=== PATIENT | female | born 1990 | race Two or more races ===

== ENCOUNTER 2016-10-25 12:11 | Emergency (ER) | payer MEDICAID ==
[~2016-10-25] VITALS: Ht 167.6 cm; Wt 72.6 kg
[2016-10-25 14:08] VITALS: BP 145/77
[2016-10-25] MEDS ORDERED: ACETAMINOPHEN ES 500 MG TABLET PO ONE (14:30)
[2016-10-25 14:32] LABS: BASOPHILS % (AUTO) 0.4 % (0.0-2.0); DIFF TOTAL % 100 %; EOSINOPHILS # (AUTO) 0.1 /CMM (0.0-0.7); EOSINOPHILS % (AUTO) 1.1 % (0.0-6.0); HEMATOCRIT 30 % (33-45); HEMOGLOBIN 9.5 g/dL (11.5-14.8); LYMPHOCYTES # (AUTO) 1.6 /CMM (0.8-4.8); LYMPHOCYTES % (AUTO) 19.8 % (20.0-44.0); MEAN CORPUSCULAR HEMOGLOBIN 22 PG (26.0-33.0); MEAN CORPUSCULAR HGB CONC 31 g/dl (31.0-36.0); MEAN CORPUSCULAR VOLUME 70 fL (82-100); MONOCYTES # (AUTO) 0.5 /CMM (0.1-1.30); NEUTROPHILS % (AUTO) 72.7 % (43.0-81.0); PLATELET COUNT (AUTO) 341 /CMM (150-450); RED BLOOD CELL COUNT(AUTO) 4.31 MIL/uL (4.0-5.2); WHITE BLOOD COUNT (AUTO) 8.2 K/uL (4.3-11.0)
[2016-10-25] MEDS ORDERED: ACETAMINOPHEN ES 500 MG TABLET ONE (14:33)
[2016-10-25 15:10] LABS: ANION GAP 14 (5-14); CALCIUM, SERUM 8.8 mg/dL (8.5-10.1); CARBON DIOXIDE 26 mmol/L (21-32); CHLORIDE 102 mmol/L (98-107); CREATININE 0.6 mg/dL (0.6-1.3); GFR 121 mL/min (>60); GLUCOSE 91 mg/dL (74-106); SODIUM SERUM 139 mmol/L (136-145); UREA NITROGEN, BLOOD 13 mg/dL (7-18)
[2016-10-25] MEDS ORDERED: POTASSIUM CHLORIDE 20 MEQ TAB.PRT.SR PO ONE (15:30)
[2016-10-25 15:56] LABS: PHENCYCLIDINE SCREEN,URINE NEGATIVE (NEGATIVE)
[2016-10-25 15:57] LABS: CANNABINOID, URINE POSITIVE (NEGATIVE)
[2016-10-25 16:01] LABS: LYMPHOCYTES % (MANUAL) 23 % (16-48)
[2016-10-25 16:02] LABS: ANISOCYTOSIS 2+; HYPOCHROMASIA 2+; MICROCYTOSIS 2+; PLATELET ESTIMATE ADEQUATE
[2016-10-25] MEDS ORDERED: POTASSIUM CHLORIDE 20 MEQ POWDER PACKET ONE (17:46)
== END 2016-10-25 18:00 ==
LOC: ER 12:14
DX: R45.851 Suicidal ideations (principal); F20.9 Schizophrenia, unspecified; I10 Essential (primary) hypertension; F17.200 Nicotine dependence, unspecified, uncomplicated
CPT/HCPCS: 36415; 80048; 80305; 84703; 85025; 99285; A4606; G0481; Z7610; G6040-TC

== ENCOUNTER 2019-08-21 15:24 | Emergency (ER) | payer MEDICAID ==
[~2019-08-21] VITALS: Ht 157.5 cm; Wt 56.7 kg
--- NOTE | 2019-08-21 15:28 | NUR ---
PT [id number] [facility] C/O NAUSEA, VOMITING AND DIARRHEA X 3 DAYS, PT IS AAOX4, NOT IN RESPIRATORY DISTRESS, HOOKED TO MONITOR, KEPT RESTED AND COMFORTABLE, WILL CONTINUE TO MONITOR.
--- NOTE | 2019-08-21 15:55 | NUR ---
MARIAELENA WINTERS AT BEDSIDE FOR EVAL.
[2019-08-21] MEDS ORDERED: ONDANSETRON 4 MG TAB.RAPDIS ONE (15:59)
[2019-08-21] MEDS ORDERED: ONDANSETRON 4 MG TAB.RAPDIS SL ONE (16:00)
--- NOTE | 2019-08-21 16:10 | NUR ---
ER PHLEB AT BEDSIDE FOR BLOOD DRAW.
[2019-08-21 16:20] LABS: BASOPHILS # (AUTO) 0.1 /CMM (0.0-0.2); BASOPHILS % (AUTO) 0.7 % (0.0-2.0); EOSINOPHILS % (AUTO) 0.4 % (0.0-6.0); HEMATOCRIT 31 % (33-45); LYMPHOCYTES # (AUTO) 2.1 /CMM (0.8-4.8); LYMPHOCYTES % (AUTO) 17.1 % (20.0-44.0); MEAN CORPUSCULAR HGB CONC 32 g/dl (31.0-36.0); MEAN CORPUSCULAR VOLUME 84 fL (82-100); MONOCYTES # (AUTO) 0.7 /CMM (0.1-1.30); MONOCYTES % (AUTO) 5.7 % (2.0-12.0); NEUTROPHILS # (AUTO) 9.5 /CMM (1.8-8.9); NEUTROPHILS % (AUTO) 76.1 % (43.0-81.0); PLATELET COUNT (AUTO) 423 /CMM (150-450); RED BLOOD CELL COUNT(AUTO) 3.74 MIL/uL (4.0-5.2); WHITE BLOOD COUNT (AUTO) 12.5 K/uL (4.3-11.0)
[2019-08-21 16:38] LABS: CALCIUM, SERUM 9.2 mg/dL (8.5-10.1); CREATININE 1.2 mg/dL (0.6-1.3); POTASSIUM 3.4 mmol/L (3.5-5.1)
[2019-08-21 16:48] LABS: ALBUMIN 3.8 g/dL (3.4-5.0); BILIRUBIN,DIRECT 0.1 mg/dL (0.0-0.2); BILIRUBIN,TOTAL 0.5 mg/dL (0.2-1.0)
[2019-08-21] MEDS ORDERED: BACITRACIN ZINC OINT (15 GM) 15 GM TUBE TP SCH (17:00)
--- NOTE | 2019-08-21 17:02 | NUR ---
PT IS FOR DISCHARGED, PT STATED THAT IS SHE IS SUICIDAL.
--- NOTE | 2019-08-21 17:15 | NUR ---
PT BECAME AGGRESSIVE AND BELIGERENT TOWARDS ER STAFF. THREATENING TO KILL HER SELF BY SMOTHERING HER SELF WITH THE PILLOW.
[2019-08-21] MEDS ORDERED: LORAZEPAM INJ 2 MG/ML VIAL ONE (17:20)
[2019-08-21 17:22] LABS: ACETAMINOPHEN < 5 ug/ml (10-30); ALCOHOL, BLOOD < 3 mg/dL (0-0)
[2019-08-21 17:23] LABS: SALICYLATE 0.2 mg/dL (2.8-20.0)
[2019-08-21 17:27] LABS: APPEARANCE,URINE Cloudy (CLEAR); BILIRUBIN,URINE SMALL (NEGATIVE); BLOOD, URINE Large Ery/uL (NEGATIVE); COLOR,URINE Yellow (YELLOW); KETONES,URINE Trace (NEGATIVE); LEUKOCYTE ESTERASE ,URINE Small (NEGATIVE); NITRITE, URINE Negative (NEGATIVE); PROTEIN,URINE 100 mg/dl (NEGATIVE); UGLUCOSE Negative (NEGATIVE); UROBILINOGEN,URINE 0.2 EU/dL (0.2)
[2019-08-21] MEDS ORDERED: LORAZEPAM INJ 2 MG/ML VIAL IM ONE (17:30)
--- NOTE | 2019-08-21 17:30 | NUR ---
PT IS IN 4 POINT RESTRAINT PER ER MD ORDER.
[2019-08-21 17:41] LABS: BACTERIA,URINE Moderate /HPF (None Seen); SQUAMOUS EPITHELIAL CELL,UR Few /HPF (None Seen); URINE AMORPHOUS URATE Few /HPF (None Seen); WBC,URINE TOO NUMEROUS TO COUN /HPF (0-3)
--- NOTE | 2019-08-21 19:11 | NUR ---
REPORT GIVEN TO ROSITA DIAL FOR [facility].
--- NOTE | 2019-08-22 05:54 | NUR ---
pt resting comfortably in gurney. pr denies any medical complaints. pt calm and cooperative. patient denying and si or hi. will cont to monitor pt.
--- NOTE | 2019-08-22 06:15 | NUR ---
pt ok to discharge per dr cazares. pt provided with meal. pt refusing to sign homeless waiver. pt discarhged in stable condition.
[2019-08-22 07:18] VITALS: BP 124/89
== END 2019-08-22 07:19 | disposition home or self-care (01) ==
LOC: ER 15:27
DX: K52.9 Noninfective gastroenteritis and colitis, unspecified (principal); R45.851 Suicidal ideations; F19.10 Other psychoactive substance abuse, uncomplicated; I10 Essential (primary) hypertension; F10.10 Alcohol abuse, uncomplicated; F17.200 Nicotine dependence, unspecified, uncomplicated; F20.9 Schizophrenia, unspecified; Y90.0 Blood alcohol level of less than 20 mg/100 ml; Z59.0 Homelessness; Z90.89 Acquired absence of other organs; Z98.890 Other specified postprocedural states
CPT/HCPCS: 36415; 80048; 80076; 80305; 80307; 80329; 81001; 83690; 84703; 85025; 87086; 96372; 99283; G0480; J2060; Q0162; 81000-TC; 87186-TC

== ENCOUNTER 2020-08-12 14:50 | Emergency (ER) | payer MEDICAID, OTHER ==
[~2020-08-12] VITALS: Ht 152.4 cm; Wt 54.4 kg
--- NOTE | 2020-08-12 15:00 | NUR ---
[address]IB [address] c/o abdominal pain x 3 days. Patient a/ox4, breathing even and unlabored, patient is verbally abusive to staff, refuses to give a urine sample at this time.
[2020-08-12 15:28] LABS: BASOPHILS % (AUTO) 0.2 % (0.0-2.0); EOSINOPHILS % (AUTO) 0.6 % (0.0-6.0); HEMATOCRIT 31 % (33-45); HEMOGLOBIN 9.8 g/dL (11.5-14.8); LYMPHOCYTES # (AUTO) 1.6 /CMM (0.8-4.8); LYMPHOCYTES % (AUTO) 22.6 % (20.0-44.0); MEAN CORPUSCULAR HGB CONC 31 g/dl (31.0-36.0); MEAN CORPUSCULAR VOLUME 79 fL (82-100); MONOCYTES # (AUTO) 0.6 /CMM (0.1-1.30); MONOCYTES % (AUTO) 8.4 % (2.0-12.0); NEUTROPHILS # (AUTO) 4.8 /CMM (1.8-8.9); NEUTROPHILS % (AUTO) 68.2 % (43.0-81.0); PLATELET COUNT (AUTO) 316 /CMM (150-450); RED BLOOD CELL COUNT(AUTO) 3.98 MIL/uL (4.0-5.2); WHITE BLOOD COUNT (AUTO) 7.1 K/uL (4.3-11.0)
[2020-08-12] MEDS ORDERED: KETOROLAC TROMETHAMINE INJ 30 MG/ML VIAL IV ONE (15:30)
[2020-08-12] MEDS ORDERED: IV NS 0.9% 1,000 ML BAG IV ONE (15:30)
[2020-08-12] MEDS ORDERED: ONDANSETRON HCL/PF 4 MG/2 ML VIAL IVP ONE (15:30)
[2020-08-12] MEDS ORDERED: MAG HYDROX/AL HYDROX/SIMETH 30 ML UDC PO ONE (15:30)
[2020-08-12] MEDS ORDERED: LORAZEPAM 0.5 MG TABLET PO ONE (15:30)
[2020-08-12] MEDS ORDERED: LIDOCAINE VISCOUS 2% UD 15 ML UDC MM ONE (15:30)
[2020-08-12 15:43] LABS: ALANINE AMINOTRANSFERASE 49 U/L (12-78); ALBUMIN 3.5 g/dL (3.4-5.0); ALKALINE PHOSPHATASE 64 U/L (46-116); ASPARTATE AMINOTRANSFERASE 33 U/L (15-37); BILIRUBIN,DIRECT 0.2 mg/dL (0.0-0.2); BILIRUBIN,TOTAL 0.4 mg/dL (0.2-1.0); CALCIUM, SERUM 8.6 mg/dL (8.5-10.1); CARBON DIOXIDE 23 mmol/L (21-32); CHLORIDE 101 mmol/L (98-107); CREATININE 1.6 mg/dL (0.6-1.3); GLUCOSE 64 mg/dL (74-106); LIPASE 99 U/L (73-393); SODIUM SERUM 136 mmol/L (136-145); UREA NITROGEN, BLOOD 13 mg/dL (7-18)
[2020-08-12 15:44] LABS: POTASSIUM 2.7 mmol/L (3.5-5.1)
[2020-08-12] MEDS ORDERED: Magnesium 1GM/D5W 100ML PREMIX 100 ML IV ONE (15:45)
[2020-08-12] MEDS ORDERED: LIDOCAINE VISCOUS 2% UD 15 ML UDC ONE (15:45)
[2020-08-12] MEDS ORDERED: POTASSIUM CHLORIDE 20 MEQ TAB.PRT.SR PO ONE ×2 (15:45→16:00)
[2020-08-12] MEDS ORDERED: MAG HYDROX/AL HYDROX/SIMETH 30 ML UDC ONE (15:45)
[2020-08-12] MEDS ORDERED: LORAZEPAM 0.5 MG TABLET ONE (15:47)
[2020-08-12] MEDS ORDERED: ONDANSETRON HCL/PF 4 MG/2 ML VIAL ONE (15:47)
--- NOTE | 2020-08-12 15:55 | NUR ---
PATIENT REFUSES TO GIVE URINE SAMPLE.
[2020-08-12] MEDS ORDERED: Magnesium 1GM/D5W 100ML PREMIX 100 ML IV SCH (16:00)
[2020-08-12] MEDS ORDERED: POTASSIUM CL. PREMIX PERIPHER. 100 ML ONE (16:27)
[2020-08-12] MEDS ORDERED: KETOROLAC TROMETHAMINE 15 MG/ML VIAL ONE (16:27)
[2020-08-12 16:42] LABS: APPEARANCE,URINE Clear (CLEAR); BILIRUBIN,URINE Negative (NEGATIVE); BLOOD, URINE Large Ery/uL (NEGATIVE); COLOR,URINE Yellow (YELLOW); LEUKOCYTE ESTERASE ,URINE Negative (NEGATIVE); NITRITE, URINE Negative (NEGATIVE); PROTEIN,URINE Negative (NEGATIVE); UGLUCOSE Negative (NEGATIVE); UROBILINOGEN,URINE 0.2 EU/dL (0.2)
[2020-08-12 16:54] LABS: BACTERIA,URINE Rare /HPF (None Seen); RBC,URINE 21-50 /HPF (0-2); SQUAMOUS EPITHELIAL CELL,UR Few /HPF (None Seen); WBC,URINE NONE SEEN /HPF (0-3)
[2020-08-12] MEDS: POTASSIUM CL. PREMIX PERIPHER. 50 ML IV SCH ×2 (16:54→17:48)
--- NOTE | 2020-08-12 17:05 | NUR ---
PATIENT A/OX4, AMBULATORY WITH STEADY GAIT. NO DISTRESS NOTED.
--- NOTE | 2020-08-12 18:27 | NUR ---
PATIENT REFUSING, VITAL SIGNS. IN STABLE CONDITION.
--- NOTE | 2020-08-12 18:56 | NUR ---
PATIENT A/OX4, BREATHING EVEN AND UNLABORED, NO SOB NOTED. IV removed. Catheter intact and site benign. Pressure and 4x4 applied to site. No bleeding noted. Provided food and transportation but patient refused. Patient given written and verbal discharge instructions. Patient verbalizes understanding of instructions. Patient is ambulatory with steady gait. Refuses offer of halfway placement. Patient given list of available shelters in surrounding area.
[2020-08-12 18:57] VITALS: BP 132/76
== END 2020-08-12 18:58 | disposition home or self-care (01) ==
LOC: ER 14:59
DX: E86.0 Dehydration (principal); F19.10 Other psychoactive substance abuse, uncomplicated; E87.6 Hypokalemia; R00.0 Tachycardia, unspecified; I10 Essential (primary) hypertension; Z98.890 Other specified postprocedural states
CPT/HCPCS: 36415; 80048; 80076; 80307; 81001; 83690; 84484; 84703; 85025; 96365; 96366; 96367; 96375; 99284; J1885; J2405; J3475; J3480; J7030; 81000-TC

== ENCOUNTER 2020-09-25 09:58 | Emergency (ER) | payer OTHER ==
[~2020-09-25] VITALS: Ht 157.5 cm; Wt 56.8 kg
--- NOTE | 2020-09-25 10:08 | NUR ---
BIB SELF C/O SUICIDAL W/ PLAN TO JUMP OFF A BUILDING. "I WANT TO SEE MY GUTS INTHE FLOOR". VS CHECKED. STABLE. CALLED SECURITY FOR WANDING. BELONGINGS CHECKED. PLACED ON SUICIDE PRECAUTIONS.
--- NOTE | 2020-09-25 10:17 | NUR ---
urine collected sent to lab
[2020-09-25 10:55] LABS: BILIRUBIN,URINE Negative (NEGATIVE); BLOOD, URINE Negative Ery/uL (NEGATIVE); COLOR,URINE YELLOW (YELLOW); LEUKOCYTE ESTERASE ,URINE Negative (NEGATIVE); NITRITE, URINE Negative (NEGATIVE); PROTEIN,URINE 30 mg/dl (NEGATIVE); UGLUCOSE Negative (NEGATIVE)
[2020-09-25 11:15] LABS: BACTERIA,URINE Moderate /HPF (None Seen); RBC,URINE 0-2 /HPF (0-2); SQUAMOUS EPITHELIAL CELL,UR Many /HPF (None Seen); WBC,URINE 0-2 /HPF (0-3)
[2020-09-25 11:25] LABS: BASOPHILS % (AUTO) 0.4 % (0.0-2.0); EOSINOPHILS % (AUTO) 1.3 % (0.0-6.0); HEMATOCRIT 29 % (33-45); HEMOGLOBIN 9.5 g/dL (11.5-14.8); LYMPHOCYTES # (AUTO) 1.8 /CMM (0.8-4.8); LYMPHOCYTES % (AUTO) 20.7 % (20.0-44.0); MEAN CORPUSCULAR HGB CONC 32 g/dl (31.0-36.0); MEAN CORPUSCULAR VOLUME 79 fL (82-100); MONOCYTES # (AUTO) 0.6 /CMM (0.1-1.30); MONOCYTES % (AUTO) 6.8 % (2.0-12.0); NEUTROPHILS % (AUTO) 70.8 % (43.0-81.0); PLATELET COUNT (AUTO) 227 /CMM (150-450); RED BLOOD CELL COUNT(AUTO) 3.75 MIL/uL (4.0-5.2); WHITE BLOOD COUNT (AUTO) 8.5 K/uL (4.3-11.0)
[2020-09-25 11:49] LABS: ACETAMINOPHEN 0 ug/ml (10-30); ALANINE AMINOTRANSFERASE 40 U/L (12-78); ALBUMIN 3.5 g/dL (3.4-5.0); ALCOHOL, BLOOD < 3 mg/dL (0-0); ALKALINE PHOSPHATASE 73 U/L (46-116); ASPARTATE AMINOTRANSFERASE 30 U/L (15-37); BILIRUBIN,DIRECT 0.1 mg/dL (0.0-0.2); BILIRUBIN,TOTAL 0.3 mg/dL (0.2-1.0); CALCIUM, SERUM 8.8 mg/dL (8.5-10.1); CARBON DIOXIDE 33 mmol/L (21-32); CHLORIDE 99 mmol/L (98-107); GLUCOSE 95 mg/dL (74-106); SODIUM SERUM 139 mmol/L (136-145); TOTAL PROTEIN, SERUM 7.6 g/dL (6.4-8.2); UREA NITROGEN, BLOOD 16 mg/dL (7-18)
[2020-09-25 11:52] LABS: POTASSIUM 2.3 mmol/L (3.5-5.1)
[2020-09-25] MEDS ORDERED: POTASSIUM CHLORIDE 20 MEQ TAB.PRT.SR PO ONE ×2 (12:00→12:04)
--- NOTE | 2020-09-25 12:54 | NUR ---
FAXED FACESHEET AND CLINICALS TO [facility]
--- NOTE | 2020-09-25 15:54 | NUR ---
SS consult requested for Homeless pt. with SI w/plan. The pt. is a 30-year old Female with a history of psychiatric problems presenting to the emergency department for suicidal ideation, per MD note. The pt. is alert 7 oriented x 4. Pt. stated she is experiencing homelessness and stated she stays at [facility]. Per pt. she is currently having thoughts of SI w/plan to jump off a building. Pt.s mood is very happy. Pt.s has fair insight & poor judgement. Pt.s she is experiencing visual and auditory hallucinations. Pt. denies HI. Pt. state she received $220 in [employer] [place] and no other benefits. Pt. denies ETOH/ drug use. SW explored pt.s support system pt. stated she has family but not in communication. SW offered pt. inpatient psychiatric Tx. Pt. was agreeable. Plan: SW referred pt. to [facility] [phone] FX: [phone] for inpatient psychiatric treatment and awaiting available bed. Pt. signed homeless waiver and SW placed it in pt.s chart. DORA provided the following homeless resources and pt. was receptive: Substance Abuse resources provided included: [facility] Substance Abuse Self-Helpline ([facility]) ; [facility] [address] [facility] [place] [address] ; [facility] [address] [facility] [address] ; [facility] Rehabilitation Program [address] [facility] [address] ; [facility] [place] [address] [facility] [address] ; [facility] 37[address] [facility] [address] ; [facility] [address] [facility] [address] ; [facility] Substance Abuse Helpline([facility])-[facility] ; [facility] ; [facility]; [facility] [place]; [facility] [address]; [facility] [place]; [facility] [place]; [facility] [place]; [facility] [place]; Alcoholics Anonymous -SFV; Qs-Hbgf-Bophfyl ; Marijuana Anonymous -[facility]; Narcotics Anonymous www.na.org. Year-round shelters: [facility] [place] [address] [place] [address] ; [facility] [place] [address] [place] [address]; [facility] J[address]nsi[address] [facility]. [facility] [address] Hygiene: [facility]: [address] [place] ; [place] [address] [facility] ; [facility] [address]51 [facility] [place] . Food Resources: [place] [facility] at [facility]- [address] [facility]; Meet Each Need with Dignity ([facility]) [address] [facility]; [facility] Food Pantry 4360 [facility]; [facility] 57[address] [facility]. Mental Health resources provided: [facility] [address] [place] [address] ; [facility] [address] [facility] [address], [place] [address] ; [facility] [address] [place] [address] ; [facility] [place], [place] [address] Healthcare Clinics: [facility] [address] [facility], [address] [place]. [place] ; [facility] [address] [facility] [address] [place] [address]; [facility] [address] [facility] [place] [address] [phone] CounselingOutpatient: [facility]:[address] [facility], [address] [place], [place] [address] (Specializes in in-depth psychotherapy for emotional distress: anxiety, depression, interpersonal conflicts, life transitions, childhood abuse) [facility]: [address] [place] [address] (Assist with solving problem marital difficulties, separation & divorce, aging parents, & grief, chronic & terminal illness) [facility]: [address] [place] [address] (Deal with loss & grief, anxiety, marital difficulties) Homebound/Mental Health Services :[address], [address] [place], [place] [id number] (Provide in-home mental services to people who are incapable of leaving their homes) Organization for Needs of the Elderly: Senior Service/Resource Center [address] [place] [address]; Partial Hospitalization Program and Outpatient at [facility] :[address] [place] [address]; [facility] :[address] [place], [place] [id number]
--- NOTE | 2020-09-25 16:23 | NUR ---
PER SANDY SOLOMON INTAKE TRANSFER INFO: [facility] GOING TO [facility], ACCEPTED BY DR SARAH MILTON, RN FOR REPORT [phone]
--- NOTE | 2020-09-25 17:52 | NUR ---
CALLED [facility], RES#[phone], ETA TO FOLLOW
--- NOTE | 2020-09-25 18:15 | NUR ---
report given to terri kearns at [facility]
--- NOTE | 2020-09-25 20:32 | NUR ---
PER [employer] NO ASSIGNED BLS UNIT AT THIS TIME
--- NOTE | 2020-09-25 21:00 | NUR ---
PT VERBALLY ABUSIVE TO STAFF. DELUSIONAL. AWARE. ORDER RECEIVED
[2020-09-25 21:10] VITALS: BP 136/84
[2020-09-25] MEDS ORDERED: OLANZAPINE 10 MG VIAL IM ONE ×2 (21:23→21:30)
--- NOTE | 2020-09-25 22:43 | NUR ---
REPORT GIVEN TO EMS. PT STABLE FOR TRANSFER
== END 2020-09-25 22:44 ==
LOC: ER 10:06
DX: R45.851 Suicidal ideations (principal); F20.9 Schizophrenia, unspecified; F15.10 Other stimulant abuse, uncomplicated; Z20.828 Contact with and (suspected) exposure to other viral communicable diseases; E87.6 Hypokalemia; F17.200 Nicotine dependence, unspecified, uncomplicated; I10 Essential (primary) hypertension
CPT/HCPCS: 36415; 80048; 80076; 80299; 80307; 80320; 81001; 84703; 85025; 87086; 87426; 96372; 99285; C9803; J3490; G0480

== ENCOUNTER 2021-12-21 10:55 | Emergency (ER) | payer OTHER ==
[~2021-12-21] VITALS: Ht 157.5 cm; Wt 74.4 kg
--- NOTE | 2021-12-21 11:00 | NUR ---
BIB RA 86 FROM HOME,C/O ABDOMINAL PAIN X 3 DAYS. PATIENT PLACED COMFORTABLY IN BED. VITALS CHECKED.
--- NOTE | 2021-12-21 11:30 | NUR ---
ASSISTANT INFANT TODDLER TEACHER AT BEDSIDE
[2021-12-21 11:32] LABS: BASOPHILS % (AUTO) 0.3 % (0.0-2.0); EOSINOPHILS % (AUTO) 0.1 % (0.0-6.0); HEMATOCRIT 31 % (33-45); HEMOGLOBIN 9.9 g/dL (11.5-14.8); LYMPHOCYTES # (AUTO) 1.2 K/uL (0.8-4.8); LYMPHOCYTES % (AUTO) 13.4 % (20.0-44.0); MEAN CORPUSCULAR HGB CONC 32 g/dl (31.0-36.0); MEAN CORPUSCULAR VOLUME 78 fL (82-100); MONOCYTES # (AUTO) 0.4 K/uL (0.1-1.30); MONOCYTES % (AUTO) 4.7 % (2.0-12.0); NEUTROPHILS # (AUTO) 7.1 K/uL (1.8-8.9); NEUTROPHILS % (AUTO) 81.5 % (43.0-81.0); PLATELET COUNT (AUTO) 344 K/uL (150-450); RED BLOOD CELL COUNT(AUTO) 4.01 MIL/uL (4.0-5.2); WHITE BLOOD COUNT (AUTO) 8.7 K/uL (4.3-11.0)
[2021-12-21 12:18] LABS: ALANINE AMINOTRANSFERASE 50 U/L (12-78); ALBUMIN 3.7 g/dL (3.4-5.0); ALCOHOL, BLOOD < 3 mg/dL (0-0); ALKALINE PHOSPHATASE 78 U/L (46-116); ASPARTATE AMINOTRANSFERASE 30 U/L (15-37); BILIRUBIN,DIRECT 0.1 mg/dL (0.0-0.2); BILIRUBIN,TOTAL 0.4 mg/dL (0.2-1.0); CALCIUM, SERUM 8.4 mg/dL (8.5-10.1); CARBON DIOXIDE 25 mmol/L (21-32); CHLORIDE 106 mmol/L (98-107); CREATININE 1.1 mg/dL (0.6-1.3); GLUCOSE 125 mg/dL (74-106); POTASSIUM 3.3 mmol/L (3.5-5.1); SODIUM SERUM 142 mmol/L (136-145); UREA NITROGEN, BLOOD 22 mg/dL (7-18)
[2021-12-21 12:21] LABS: ACETAMINOPHEN 0 ug/ml (10-30)
--- NOTE | 2021-12-21 13:03 | NUR ---
STILL UNABLE TO PROVIDE URINE SAMPLE AT THIS TIME, MD DIALLO
--- NOTE | 2021-12-21 14:44 | NUR ---
URINE SPECIMEN SENT TO LAB
[2021-12-21 15:28] LABS: BILIRUBIN,URINE NEGATIVE (NEGATIVE); COLOR,URINE YELLOW (YELLOW); LEUKOCYTE ESTERASE ,URINE NEGATIVE (NEGATIVE); NITRITE, URINE NEGATIVE (NEGATIVE); PROTEIN,URINE 30 mg/dl (NEGATIVE); UGLUCOSE 100 MG/DL mg/dL (NEGATIVE); UROBILINOGEN,URINE 0.2 EU/dL (0.2)
[2021-12-21 15:44] LABS: BACTERIA,URINE Few /HPF (None Seen); SQUAMOUS EPITHELIAL CELL,UR Moderate /HPF (None Seen)
--- NOTE | 2021-12-21 16:43 | NUR ---
MD AWARE OF PATIENT BLOOD PRESSURE, SEE CHART
[2021-12-21] MEDS ORDERED: LORAZEPAM INJ 2 MG/ML VIAL IM ONE (17:00)
[2021-12-21] MEDS ORDERED: LORAZEPAM INJ 2 MG/ML VIAL ONE (17:23)
--- NOTE | 2021-12-21 18:57 | NUR ---
COVID ANTIGEN SWAB SENT TO LAB
--- NOTE | 2021-12-21 20:30 | NUR ---
PATIENT IS ASLEEP BUT AROUSABLE.
--- NOTE | 2021-12-21 20:51 | NUR ---
FACESHEET AND CLINICALS FAXED TO [facility].
--- NOTE | 2021-12-22 00:28 | NUR ---
URINE COLLECTED AND SENT TO LAB
--- NOTE | 2021-12-22 01:47 | NUR ---
ACCEPTED AT [facility] ACCEPTING DOCTOR: DR. MARTÍNEZ NUMBER FOR REPORT: [phone] PER ART.
--- NOTE | 2021-12-22 01:56 | NUR ---
[facility] ETA 1 HOUR
[2021-12-22] MEDS ORDERED: CLONIDINE HCL 0.1 MG TABLET ONE ×2 (02:25→03:30)
[2021-12-22] MEDS ORDERED: CLONIDINE HCL 0.1 MG TABLET PO ONE ×2 (02:30→03:30)
--- NOTE | 2021-12-22 03:09 | NUR ---
REPORT GIVEN TO
--- NOTE | 2021-12-22 03:20 | NUR ---
[facility] 295 at [facility] to transport patient to [facility] in stable condition.
[2021-12-22 06:02] VITALS: BP 132/85
--- NOTE | 2021-12-22 08:15 | NUR ---
THE PATIENT IS RECEIVED IN ER BED #12. THE PATIENT IS ALERT AND ORIENTED X4. DENIES PAIN. IN ROOM AIR AND DENIES SOB. RESPIRATION REGULAR AND UNLABORED. WILL CONTINUE TO MONITOR THE PATIENT.
--- NOTE | 2021-12-22 10:14 | NUR ---
THE PATIENT IS TRANSFERED TO [facility] IN STABLE CONDITION VIA ARRANGED TRANSPO.
--- NOTE | 2021-12-22 10:15 | NUR ---
UNABLE TO DEPART THE PATIENT FROM [facility] ER
== END 2021-12-22 10:14 ==
LOC: ER 11:00
DX: R45.851 Suicidal ideations (principal); F20.9 Schizophrenia, unspecified; I10 Essential (primary) hypertension; F15.10 Other stimulant abuse, uncomplicated; Z20.822 Contact with and (suspected) exposure to COVID-19
CPT/HCPCS: 36415; 80048; 80076; 80143; 80307; 80320; 81001; 85025; 87426; 96372; 99285; C9803; J2060; G0480

== ENCOUNTER 2022-01-03 10:36 | Emergency (ER) | payer OTHER ==
[~2022-01-03] VITALS: Ht 160 cm; Wt 70.3 kg
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
[2022-01-03] MEDS ORDERED: LORAZEPAM 1 MG TABLET ONE (10:54)
[2022-01-03] MEDS ORDERED: OLANZAPINE 5 MG TABLET ONE (10:54)
[2022-01-03] MEDS ORDERED: LORAZEPAM 1 MG TABLET PO ONE (11:00)
[2022-01-03] MEDS ORDERED: OLANZAPINE 5 MG TABLET PO ONE (11:00)
--- NOTE | 2022-01-03 11:05 | NUR ---
LAB AT BEDSIDE
--- NOTE | 2022-01-03 11:07 | NUR ---
PT TAKEN TO CT
[2022-01-03 11:17] LABS: BASOPHILS # (AUTO) 0.1 K/uL (0.0-0.2); BASOPHILS % (AUTO) 0.9 % (0.0-2.0); EOSINOPHILS % (AUTO) 0.3 % (0.0-6.0); HEMATOCRIT 31 % (33-45); HEMOGLOBIN 9.9 g/dL (11.5-14.8); LYMPHOCYTES # (AUTO) 1.4 K/uL (0.8-4.8); LYMPHOCYTES % (AUTO) 9.6 % (20.0-44.0); MEAN CORPUSCULAR HGB CONC 32 g/dl (31.0-36.0); MEAN CORPUSCULAR VOLUME 78 fL (82-100); MONOCYTES # (AUTO) 0.5 K/uL (0.1-1.30); MONOCYTES % (AUTO) 3.6 % (2.0-12.0); NEUTROPHILS # (AUTO) 12.8 K/uL (1.8-8.9); NEUTROPHILS % (AUTO) 85.6 % (43.0-81.0); PLATELET COUNT (AUTO) 276 K/uL (150-450); RED BLOOD CELL COUNT(AUTO) 3.99 MIL/uL (4.0-5.2); WHITE BLOOD COUNT (AUTO) 14.9 K/uL (4.3-11.0)
[2022-01-03 11:24] LABS: CARBON DIOXIDE 30 mmol/L (21-32); CHLORIDE 98 mmol/L (98-107); CREATININE 1.5 mg/dL (0.6-1.3); GLUCOSE 111 mg/dL (74-106); SODIUM SERUM 134 mmol/L (136-145); UREA NITROGEN, BLOOD 24 mg/dL (7-18)
[2022-01-03 11:25] LABS: POTASSIUM 2.4 mmol/L (3.5-5.1)
[2022-01-03 11:30] LABS: ALANINE AMINOTRANSFERASE 44 U/L (12-78); ALBUMIN 3.9 g/dL (3.4-5.0); ALCOHOL, BLOOD < 3 mg/dL (0-0); ALKALINE PHOSPHATASE 78 U/L (46-116); ASPARTATE AMINOTRANSFERASE 28 U/L (15-37); BILIRUBIN,DIRECT 0.1 mg/dL (0.0-0.2); BILIRUBIN,TOTAL 0.4 mg/dL (0.2-1.0); TOTAL PROTEIN, SERUM 8.1 g/dL (6.4-8.2)
[2022-01-03 11:32] LABS: BILIRUBIN,URINE NEGATIVE (NEGATIVE); COLOR,URINE YELLOW (YELLOW); LEUKOCYTE ESTERASE ,URINE NEGATIVE (NEGATIVE); NITRITE, URINE NEGATIVE (NEGATIVE); PROTEIN,URINE NEGATIVE (NEGATIVE); UGLUCOSE 100 MG/DL mg/dL (NEGATIVE); UROBILINOGEN,URINE 0.2 EU/dL (0.2)
[2022-01-03 11:47] LABS: BACTERIA,URINE Few /HPF (None Seen); RBC,URINE 0-2 /HPF (0-2); SQUAMOUS EPITHELIAL CELL,UR Moderate /HPF (None Seen); WBC,URINE 0-2 /HPF (0-3)
[2022-01-03] MEDS ORDERED: POTASSIUM CHLORIDE 20 MEQ TAB.PRT.SR PO ONE ×4 (11:51→21:30)
[2022-01-03 12:22] LABS: ACETAMINOPHEN 0 ug/ml (10-30)
--- NOTE | 2022-01-03 12:39 | NUR ---
FAXED CLINICALS TO [facility]
--- NOTE | 2022-01-03 16:29 | NUR ---
ACCEPTED TO [facility] UNDER THE CARE OF DR. GAUTHIER NUMBER FOR REPORT [phone] ETA 1800
--- NOTE | 2022-01-03 16:46 | NUR ---
# FOR REPORT: [phone] EXT 240 AMARILIS BECKER
--- NOTE | 2022-01-03 17:10 | NUR ---
COVID SWAB DONE AND SENT TO LAB
--- NOTE | 2022-01-03 17:12 | NUR ---
REPORT GIVEN TO BARB EVANS [facility]. REQUESTS TEST AND REPEAT POTASSIUM LEVEL. MADE AWARE
--- NOTE | 2022-01-03 19:28 | NUR ---
UPDATE REPORT GIVEN TO GALE BECKER OF UNIT 2 [facility].
--- NOTE | 2022-01-03 19:28 | NUR ---
CALL [employer] SPECIALIST AT [phone] EXT [phone] FOR NEW [facility] TRANSPORTATION SHIP'S COOK TIME.
--- NOTE | 2022-01-03 20:10 | NUR ---
FAXED NEW K LEVEL TO [facility]
--- NOTE | 2022-01-03 21:06 | NUR ---
[facility]CEPTED [facility] BY DR GAUTHIER AFTER [id number] #[phone]
[2022-01-03] MEDS ORDERED: POTASSIUM CHLORIDE 10 MEQ TABLET.SA ONE (21:07)
[2022-01-03] MEDS ORDERED: POTASSIUM CHLORIDE 10 MEQ TABLET.SA PO ONE (21:30)
[2022-01-04] MEDS ORDERED: ONDANSETRON 4 MG TAB.RAPDIS SL ONE (01:00)
[2022-01-04] MEDS ORDERED: METOPROLOL TARTRATE 25 MG TABLET PO ONE ×2 (01:00→09:30)
[2022-01-04] MEDS ORDERED: ONDANSETRON 4 MG TAB.RAPDIS ONE (01:46)
[2022-01-04] MEDS ORDERED: METOPROLOL TARTRATE 25 MG TABLET ONE ×2 (01:46→09:12)
[2022-01-04] MEDS ORDERED: METOPROLOL TARTRATE INJ 5 MG/5 ML AMPUL IV ONE (09:30)
[2022-01-04 11:04] VITALS: BP 122/86
--- NOTE | 2022-01-04 12:42 | NUR ---
PICKED UP BY TRANSPORT IN STABLE CONDITION
== END 2022-01-04 13:01 ==
LOC: ER 10:39
DX: F15.10 Other stimulant abuse, uncomplicated (principal); R45.851 Suicidal ideations; F20.9 Schizophrenia, unspecified; I10 Essential (primary) hypertension; R51.9 Headache, unspecified; E87.6 Hypokalemia; D72.829 Elevated white blood cell count, unspecified; Z20.822 Contact with and (suspected) exposure to COVID-19
CPT/HCPCS: 36415; 70450; 80048; 80076; 80143; 80307; 80320; 81001; 84132; 84703; 85025; 87426; 99285; C9803; Q0162; G0480